=== PATIENT | male | born 1955 | race American Indian/Alaskan Native ===

== ENCOUNTER 2020-07-08 15:28 | Outpatient (CLI) | payer MEDICARE, OTHER ==
[2020-07-12 08:31] LABS: Vitamin D, 25-OH, D2 <4 ng/mL
[2020-07-12 17:07] LABS: Abnormal Protein Band 1 0.2 g/dL; Albumin 3.9 g/dL (3.8-4.8); Gamma Globulin 0.6 g/dL (0.8-1.7)
[2020-07-14 12:46] LABS: ANA Screen, IFA Negative (Negative)
== END 2020-07-08 15:29 | disposition home or self-care (01) ==
LOC: LAB 15:28
PROVIDERS: ATTEND Specialist
DX: G62.9 Polyneuropathy, unspecified (principal); G65.1 Sequelae of other inflammatory polyneuropathy; E07.9 Disorder of thyroid, unspecified; R73.03 Prediabetes
CPT/HCPCS: 36415; 82306; 82607; 83036; 83921; 84165; 84443; 85652; 86038; 86334; 86592

== ENCOUNTER 2021-04-04 13:37 | Emergency (ER) | payer MEDICARE ==
[2021-04-04] MEDS ORDERED: HYDROcodone/ACETAMINOPHEN 5-325 MG TAB PO ONE (15:21)
[2021-04-04] MEDS ORDERED: ONDANSETRON 4 MG ODT TAB PO ONE (15:21)
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
[2021-04-04 18:07] VITALS: BP 186/74
--- NOTE | 2021-04-07 14:16 | Electrocardiograph Report ---
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
== END 2021-04-04 18:09 | disposition home or self-care (01) ==
LOC: ED 13:37
DX: M54.9 Dorsalgia, unspecified (principal); M25.519 Pain in unspecified shoulder; R42 Dizziness and giddiness; R07.9 Chest pain, unspecified; V89.2XXA Person injured in unspecified motor-vehicle accident, traffic, initial encounter; Y93.89 Activity, other specified; Y92.89 Other specified places as the place of occurrence of the external cause; Y99.8 Other external cause status
CPT/HCPCS: 70450; 71045; 72072; 93005; 99284; J3490; Q0162